=== PATIENT | male | born 1980 | race Caucasian/White ===

== ENCOUNTER 2020-05-19 13:22 | Emergency (ER) | payer OTHER ==
[~2020-05-19] VITALS: Ht 193 cm; Wt 83.9 kg
[2020-05-19 13:36] VITALS: BP 109/73
== END 2020-05-19 15:08 | disposition home or self-care (01) ==
LOC: ER 13:28
DX: M25.461 Effusion, right knee (principal); M25.562 Pain in left knee; Z60.2 Problems related to living alone; Z91.018 Allergy to other foods